=== PATIENT | male | born 1985 | race African-American/Black ===

== ENCOUNTER 2016-12-30 11:46 | Emergency (ER) | payer SELFPAY ==
[2016-12-30 11:51] VITALS: BP 121/81; PULSE 75; RESP 16; TEMP 97.6
[2016-12-30] MEDS ORDERED: KETOROLAC 60 MG/2 ML VIAL IM STA (12:02)
--- NOTE | 2016-12-30 12:08 | ED ---
General Adult HPI - General Chief complaint: Chest Pain Stated complaint: chest pain Time Seen by Provider: 12/30/16 11:50 Source: patient, RN notes reviewed Mode of arrival: ambulatory Limitations: no limitations - History of Present Illness Initial comments: This is a 31-year-old male who presents emergency Department complaining of left chest pain with movement. Patient states he stays still there is no pain. Patient states he moves his left arm across his chest the pain increases per patient states also palpating the left chest area increases the pain. Patient denies any recent injury or trauma that he knows of. Patient states been ongoing for a couple days per patient denies any shortness breath or difficulty breathing. Patient denies any diaphoresis per patient denies any nausea or vomiting. Patient denies any abdominal pain. Patient states she's not had a recent cough denies any fever or chills. Patient denies any lightheadedness dizziness or near syncopal episode. - Related Data Previous Rx's Medication Instructions Recorded Albuterol Inhaler [Ventolin Hfa 2 puff INHALATION Q4HR PRN #1 05/29/15 Inhaler] inhaler Azithromycin [Zithromax Z-pack] 250 mg PO DIRECTED #6 tab 05/29/15 predniSONE 50 mg PO DAILY #5 tab 05/29/15 Ibuprofen [Motrin] 600 mg PO Q6HR PRN #20 tab 12/30/16 Allergies Allergy/AdvReac Type Severity Reaction Status Date / Time No Known Allergies Allergy Verified 12/30/16 11:47 Review of Systems ROS Statement: Those systems with pertinent positive or pertinent negative responses have been documented in the HPI. ROS Other: All systems not noted in ROS Statement are negative. Past Medical History Past Medical History: Asthma History of Any Multi-Drug Resistant Organisms: None Reported Past Surgical History: No Surgical Hx Reported Past Psychological History: No Psychological Hx Reported Smoking Status: Current every day smoker Past Alcohol Use History: Occasional Past Drug Use History: Marijuana General Exam - General Exam Comments Initial Comments: GENERAL: Patient is well-developed and well-nourished. Patient is nontoxic and well- hydrated and is in no acute distress. ENT: Neck is soft and supple. No significant lymphadenopathy is noted. Oropharynx is clear. Moist mucous membranes. Neck has full range of motion without eliciting any pain. EYES: The sclera were anicteric and conjunctiva were pink and moist. Extraocular movements were intact and pupils were equal round and reactive to light. Eyelids were unremarkable. PULMONARY: Unlabored respirations. Good breath sounds bilaterally. No audible rales rhonchi or wheezing was noted. CARDIOVASCULAR: There is a regular rate and rhythm without any murmurs gallops or rubs. Patient 's pain is reproducible with palpation. ABDOMEN: Soft and nontender with normal bowel sounds. No palpable organomegaly was noted. There is no palpable pulsatile mass. SKIN: Skin is clear with no lesions or rashes and otherwise unremarkable. NEUROLOGIC: Patient is alert and oriented x3. Cranial nerves II through XII are grossly intact. Motor and sensory are also intact. Normal speech, volume and content. Symmetrical smile. MUSCULOSKELETAL: Normal extremities with adequate strength and full range of motion. LYMPHATICS: No significant lymphadenopathy is noted PSYCHIATRIC: Normal psychiatric evaluation. Limitations: no limitations Course Vital Signs 12/30/16 11:47 Temperature 97.6 F Pulse Rate 75 Respiratory 16 Rate Blood Pressure 121/81 O2 Sat by Pulse 98 Oximetry Medical Decision Making - Medical Decision Making EKG shows normal sinus rhythm at 60 bpm VA interval 166 QRS is under QT interval 394 QTC is 399 per patient's EKG shows no ST segment elevation or depression or T-wave abdomen is noted. I gave the patient a shot of Toradol to help with the chest wall pain. Patient again to make the pain completely go away but just sitting still. Disposition Clinical Impression: Chest wall pain Disposition: HOME SELF-CARE Condition: Good Instructions: Chest Wall Pain (ED) Prescriptions: Ibuprofen [Motrin] 600 mg PO Q6HR PRN #20 tab PRN Reason: For pain Referrals: None,Stated [Primary Care Provider] - 1-2 days Time of Disposition: 12:07
== END 2016-12-30 12:16 | disposition home or self-care (01) ==
LOC: EC 11:46
DX: R07.89 Other chest pain (principal); F17.200 Nicotine dependence, unspecified, uncomplicated
CPT/HCPCS: 99284; 96372; J1885

== ENCOUNTER 2017-03-30 04:50 | Emergency (ER) | payer OTHER ==
[2017-03-30] MEDS ORDERED: ALBUTEROL NEBULIZED 2.5 MG/3 ML INHALATION STA (06:53)
--- NOTE | 2017-03-30 07:03 | XR ---
EXAM: XR Chest, 2 Views CLINICAL HISTORY: Cough TECHNIQUE: Frontal and lateral views of the chest. COMPARISON: 05/29/2015 FINDINGS: Lungs: Mild left basilar atelectasis and/or infiltrates is suggested. Pleural space: Unremarkable. No pneumothorax. Heart: Unremarkable. No cardiomegaly. Mediastinum: Unremarkable. Bones/joints: Unremarkable. IMPRESSION: Mild left basilar atelectasis and/or infiltrates is suggested. Correlate clinically
[2017-03-30] MEDS ORDERED: cefTRIAXone 1,000 MG VIAL IM STA (07:33)
[2017-03-30] MEDS ORDERED: predniSONE 50 MG TAB PO STA (07:33)
--- NOTE | 2017-03-30 07:33 | ED ---
General Adult HPI - General Chief complaint: Upper Respiratory Infection Stated complaint: back/neck pain Time Seen by Provider: 03/30/17 05:00 Source: patient, RN notes reviewed Mode of arrival: ambulatory Limitations: no limitations - History of Present Illness Initial comments: This is a 31-year-old male who presents emergency Department complaining of a cough and sputum production. Patient states he is smoker and has no history of any breathing problems such as asthma. Patient states it started a couple days ago has been getting progressively worse. Patient states he does continue to smoke. Patient denies any fever chills. Patient denies any chest pain or palpitations. Patient denies any other problems at this time. - Related Data Previous Rx's Medication Instructions Recorded Ibuprofen [Motrin] 600 mg PO Q6HR PRN #20 tab 12/30/16 Albuterol Inhaler [Ventolin Hfa 1 - 2 puff INHALATION Q6HR PRN #2 03/30/17 Inhaler] puff Azithromycin [Zithromax Tri-Sanjay] 500 mg PO DAILY #3 tab 03/30/17 Ibuprofen [Motrin] 800 mg PO Q6H PRN #20 tab 03/30/17 predniSONE 40 mg PO DAILY #8 tab 03/30/17 Allergies Allergy/AdvReac Type Severity Reaction Status Date / Time No Known Allergies Allergy Verified 03/30/17 05:05 Review of Systems ROS Statement: Those systems with pertinent positive or pertinent negative responses have been documented in the HPI. ROS Other: All systems not noted in ROS Statement are negative. Past Medical History Past Medical History: Asthma History of Any Multi-Drug Resistant Organisms: None Reported Past Surgical History: No Surgical Hx Reported Past Psychological History: No Psychological Hx Reported Smoking Status: Current every day smoker Past Alcohol Use History: Occasional Past Drug Use History: Marijuana General Exam - General Exam Comments Initial Comments: GENERAL: Patient is well-developed and well-nourished. Patient is nontoxic and well- hydrated and is in mild distress. ENT: Neck is soft and supple. No significant lymphadenopathy is noted. Oropharynx is clear. Moist mucous membranes. Neck has full range of motion without eliciting any pain. EYES: The sclera were anicteric and conjunctiva were pink and moist. Extraocular movements were intact and pupils were equal round and reactive to light. Eyelids were unremarkable. PULMONARY: Slight extremities. CARDIOVASCULAR: There is a regular rate and rhythm without any murmurs gallops or rubs. ABDOMEN: Soft and nontender with normal bowel sounds. SKIN: Skin is clear with no lesions or rashes and otherwise unremarkable. NEUROLOGIC: Patient is alert and oriented x3. Cranial nerves II through XII are grossly intact. MUSCULOSKELETAL: Normal extremities with adequate strength and full range of motion. No lower extremity swelling or edema. No calf tenderness. LYMPHATICS: No significant lymphadenopathy is noted PSYCHIATRIC: Normal psychiatric evaluation. Limitations: no limitations Course Vital Signs 03/30/17 03/30/17 03/30/17 04:58 05:12 06:41 Temperature 99.0 F 98.1 F Pulse Rate 100 91 Respiratory 18 20 18 Rate Blood Pressure 133/96 144/87 O2 Sat by Pulse 98 97 Oximetry 03/30/17 03/30/17 07:16 07:29 Temperature Pulse Rate 108 H 112 H Respiratory Rate Blood Pressure O2 Sat by Pulse Oximetry Medical Decision Making - Medical Decision Making Chest x-ray shows no acute abnormality After patient was discharged complained about having slipped a couple days ago and hurt his back and he wanted some Motrin. Disposition Clinical Impression: Acute bronchitis Disposition: HOME SELF-CARE Condition: Good Instructions: Acute Bronchitis (ED) Prescriptions: Albuterol Inhaler [Ventolin Hfa Inhaler] 1 - 2 puff INHALATION Q6HR PRN #2 puff PRN Reason: Difficulty breathing Azithromycin [Zithromax Tri-Sanjay] 500 mg PO DAILY #3 tab Ibuprofen [Motrin] 800 mg PO Q6H PRN #20 tab PRN Reason: Pain predniSONE 40 mg PO DAILY #8 tab Referrals: None,Stated [Primary Care Provider] - 1-2 days Time of Disposition: 07:32
[2017-03-30 08:38] VITALS: BP 136/69; PULSE 98; RESP 16; TEMP 98
== END 2017-03-30 08:38 | disposition home or self-care (01) ==
LOC: EC 04:50
DX: J20.9 Acute bronchitis, unspecified (principal); J45.909 Unspecified asthma, uncomplicated; F17.200 Nicotine dependence, unspecified, uncomplicated
CPT/HCPCS: 99283 ×2; 96372 ×2; 94640; 71020; J0696; J7512

== ENCOUNTER 2017-08-26 07:53 | Emergency (ER) | payer OTHER ==
[2017-08-26] MEDS ORDERED: KETOROLAC 30 MG/ML 1 ML VIAL IVP STA (08:18)
[2017-08-26] MEDS ORDERED: SODIUM CHLORIDE 0.9% 1,000 ML IV STA (08:18)
--- NOTE | 2017-08-26 08:22 | ED ---
Chest Pain HPI - General Chief Complaint: Chest Pain Stated Complaint: Chest pain Time Seen by Provider: 08/26/17 08:04 Source: patient, RN notes reviewed, old records reviewed Mode of arrival: ambulatory Limitations: no limitations - History of Present Illness Initial Comments: This is a 31-year-old male presents emergency Department chief complaint of chest pain that is worse with movement and taking a deep breath since the weekend. Patient reports that he thinks is related to the change weather and weight lifting. He's had a minor cough but no yellow-green sputum or blood. Patient reports that he has no lower extremity swelling. Denies any nausea vomiting or diaphoresis. Patient is a history of a smoker. He states that he thought was muscle strain. He went to the gym to work it out. He states is become progressively worse with movement. He has not had any Motrin or Tylenol. - Related Data Previous Rx's Medication Instructions Recorded Cyclobenzaprine [Flexeril] 10 mg PO TID #20 tab 08/26/17 Naproxen 500 mg PO BID #20 tablet 08/26/17 methylPREDNISolone Dose Pack 4 mg PO DIRECTED #21 package 08/26/17 [Medrol Dose Pack] Allergies Allergy/AdvReac Type Severity Reaction Status Date / Time No Known Allergies Allergy Verified 08/26/17 08:26 Review of Systems ROS Statement: Those systems with pertinent positive or pertinent negative responses have been documented in the HPI. ROS Other: All systems not noted in ROS Statement are negative. EKG Findings - EKG Comments: EKG Findings:: EKG performed at 808 shows normal sinus rhythm, cannot rule out anterior infarct. Age undetermined. The jugular is 70 bpm. WI interval 170 ms. QRS duration 94 ms. QT QTc is 384/414 ms. Past Medical History Past Medical History: Asthma History of Any Multi-Drug Resistant Organisms: None Reported Past Surgical History: No Surgical Hx Reported Past Psychological History: No Psychological Hx Reported Smoking Status: Current every day smoker Past Alcohol Use History: Occasional Past Drug Use History: Marijuana General Exam - General Exam Comments Initial Comments: This is a 31-year-old male. No acute distress. Limitations: no limitations General appearance: alert Head exam: Present: atraumatic, normocephalic, normal inspection Eye exam: Present: normal appearance, PERRL, EOMI. Absent: scleral icterus, conjunctival injection, periorbital swelling ENT exam: Present: normal exam, mucous membranes moist Neck exam: Present: normal inspection. Absent: tenderness, meningismus, lymphadenopathy Respiratory exam: Present: normal lung sounds bilaterally, chest wall tenderness (over left pectoral muscle). Absent: respiratory distress, wheezes, rales, rhonchi, stridor Cardiovascular Exam: Present: regular rate, normal rhythm, normal heart sounds. Absent: systolic murmur, diastolic murmur, rubs, gallop, clicks GI/Abdominal exam: Present: soft, normal bowel sounds. Absent: distended, tenderness, guarding, rebound, rigid Extremities exam: Present: normal inspection, full ROM, normal capillary refill. Absent: tenderness, pedal edema, joint swelling, calf tenderness Back exam: Present: normal inspection Neurological exam: Present: alert, oriented X3, CN II-XII intact Psychiatric exam: Present: normal affect, normal mood Skin exam: Present: warm, dry, intact, normal color. Absent: rash Course Vital Signs 08/26/17 08/26/17 08/26/17 07:56 08:46 09:45 Temperature 98.3 F Pulse Rate 75 71 67 Respiratory 16 18 18 Rate Blood Pressure 139/94 134/88 135/83 O2 Sat by Pulse 99 98 99 Oximetry 08/26/17 10:08 Temperature 98.2 F Pulse Rate Respiratory Rate Blood Pressure O2 Sat by Pulse Oximetry Chest Pain MDM - MDM This is a 31 year old male with history of left chest pain and right chest pain taht is worse with movement and reproducible on exam. Patient lungs are clear to exam, cardiac exam was normal. He reports it is worse with stretching his chest and moving his arms. Patient lab work was reviewed and normal. With 3 days , if this was cardiac origin of pain, I would expect to see an elevated troponin. Patient Chest x-ray shows Is no acute cardiopulmonary process. No significant change from prior. Patient will be given antiinflammatory medication and return parameters discussed. Will treat the patient as muscle strain and pectoralis strain. Discussed prompt follow up with PCP and return parameters discussed. Disposition Clinical Impression: Chest wall pain, Pectoralis muscle strain Disposition: HOME SELF-CARE Condition: Good Instructions: Costochondritis (ED) Additional Instructions: Patient is to rest, take the medication as prescribed. Follow-up with primary care provider if symptoms aren't continuing to persist in 1-2 days. Return to emergency department if any alarming signs or symptoms occur. Recommended stretching and taking warm baths for muscle strain. Prescriptions: Cyclobenzaprine [Flexeril] 10 mg PO TID #20 tab methylPREDNISolone Dose Pack [Medrol Dose Pack] 4 mg PO DIRECTED #21 package Naproxen 500 mg PO BID #20 tablet Referrals: None,Stated [Primary Care Provider] - 1-2 days Time of Disposition: 10:02
[2017-08-26 08:47] VITALS: RESP 18
--- NOTE | 2017-08-26 08:47 | XR ---
EXAMINATION TYPE: XR chest 2V DATE OF EXAM: 08/26/2017 COMPARISON: Chest x-ray from March 30, 2017. HISTORY: Chest pain for 4 days. TECHNIQUE: Frontal and lateral views of the chest are obtained. FINDINGS: Poor inspiration is noted on current study. There is no focal air space opacity, pleural e ffusion, or pneumothorax seen. The cardiac silhouette size is within normal limits. The osseous st ructures are intact. IMPRESSION: No acute cardiopulmonary process. No significant change from prior.
[2017-08-26 08:54] LABS: Basophils % (A) 0 %; Eosinophils # (A) 0.1 k/uL (0-0.7); Eosinophils % (A) 2 %; HCT 44.4 % (39.0-53.0); HGB 15.2 gm/dL (13.0-17.5); Lymphocytes # (A) 1.9 k/uL (1.0-4.8); Lymphocytes % (A) 31 %; MCH 30.4 pg (25.0-35.0); MCHC 34.2 g/dL (31.0-37.0); Mean Platelet Volume 8.8; Monocytes # (A) 0.5 k/uL (0-1.0); Monocytes % (A) 8 %; Neutrophils # (A) 3.6 k/uL (1.3-7.7); Neutrophils % (A) 57 %; Platelet Count 155 k/uL (150-450); RBC 4.99 m/uL (4.30-5.90); RDW 12.8 % (11.5-15.5); WBC 6.3 k/uL (3.8-10.6)
[2017-08-26 08:57] LABS: INR 1.1 (<1.2); Partial Thromboplastin Time 27.7 sec (22.0-30.0); Prothrombin Time 10.5 sec (9.0-12.0)
[2017-08-26 09:10] LABS: ALT 48 U/L (21-72); AST 29 U/L (17-59); Albumin 4.4 g/dL (3.5-5.0); Alkaline Phosphatase 74 U/L (38-126); Anion Gap 12 mmol/L; Blood Urea Nitrogen 14 mg/dL (9-20); Calcium 9.5 mg/dL (8.4-10.2); Carbon Dioxide 24 mmol/L (22-30); Chloride 105 mmol/L (98-107); Glucose 98 mg/dL (74-99); Magnesium 1.8 mg/dL (1.6-2.3); Potassium 4.6 mmol/L (3.5-5.1); Sodium 141 mmol/L (137-145); Total Bilirubin 0.6 mg/dL (0.2-1.3); Total Protein 7.4 g/dL (6.3-8.2)
[2017-08-26 09:16] LABS: Creatine Kinase 215 U/L (55-170)
[2017-08-26 09:29] LABS: Creatine Kinase MB 0.3 ng/mL (0.0-2.4); Troponin I <0.012 ng/mL (0.000-0.034)
[2017-08-26 09:46] VITALS: BP 135/83; PULSE 67
[2017-08-26 10:16] VITALS: TEMP 98.2
== END 2017-08-26 10:08 | disposition home or self-care (01) ==
LOC: EC 07:53
DX: S29.011A Strain of muscle and tendon of front wall of thorax, initial encounter (principal); R05 Cough; F17.200 Nicotine dependence, unspecified, uncomplicated; X58.XXXA Exposure to other specified factors, initial encounter
CPT/HCPCS: 36415; 93005; 83880; 80053; 82550; 82553; 83735; 84484; 85025; 85610; 85730; 71046; 99285; 96374; 96361; J1885

== ENCOUNTER → 2022-06-25 | Outpatient (CLI) | payer BC, OTHER ==
--- NOTE | 2022-06-25 12:27 | XR ---
EXAMINATION TYPE: XR spine complete AP and Lat DATE OF EXAM: 06/25/2022 COMPARISON: NONE HISTORY: Pain TECHNIQUE: AP and lateral views of the cervical, thoracic and lumbar spine submitted FINDINGS: Cervical spine there is disc space narrowing and hypertrophic changes at C4-5 and C5-C6. Odontoid int act. Prevertebral soft tissue structures within normal limits. Thoracic spine is mild hypertrophic change involving the lower thoracic spine. Disc space appears be fairly well preserved and the pedicles are intact. Lumbar spine: Alignment is anatomic. Pedicles intact hypertrophic spurring anterior L3 segment. No co mpression or metastases. IMPRESSION: 1. Moderate degenerative disc disease C5-C6. 2. Mild hypertrophic changes involving the lower thoracic spine. 3. Lumbar spine demonstrates preservation of disc spaces. If concern for disc herniation consider MRI .
== END | disposition home or self-care (01) ==
LOC: RADXRMAIN 11:40
PROVIDERS: ATTEND Nurse Practitioner Family
DX: M50.322 Other cervical disc degeneration at C5-C6 level (principal); M47.814 Spondylosis without myelopathy or radiculopathy, thoracic region
CPT/HCPCS: 72082

== ENCOUNTER → 2023-03-27 | Outpatient (CLI) | payer OTHER | LOC: PNWHC3 09:44 | PROVIDERS: ATTEND Anesthesiology | DX: Z53.9 Procedure and treatment not carried out, unspecified reason (principal) ==

== ENCOUNTER → 2023-08-04 | Outpatient (CLI) | payer OTHER ==
--- NOTE | 2023-08-04 17:46 | XR ---
Right ankle. HISTORY: Pain findings COMPARISON: None TECHNIQUE: 3 views right ankle were obtained. FINDINGS: There is slight abnormal widening of the medial aspect of the ankle mortise. There is mild soft tissu e swelling over the lateral malleolus. There is no fracture or focal intraosseous abnormality. There is no abnormal soft tissue calcification. IMPRESSION: 1. No fracture. 2. Mild widening of the medial aspect of the ankle mortise and lateral soft tissue swelling raising t he question of ligamentous injury.
--- NOTE | 2023-08-04 17:48 | XR ---
Right wrist. HISTORY: Pain finding trauma COMPARISON: None TECHNIQUE: 4 views right wrist are obtained. EYES: There is no fracture, dislocation, intraosseous, intra-articular or soft tissue abnormality. IMPRESSION: No evidence of acute trauma.
--- NOTE | 2023-08-04 17:49 | XR ---
Right knee. HISTORY: Pain, trauma COMPARISON: None. TECHNIQUE: 3 views right knee were obtained. FINDINGS: There is no fracture, dislocation or focal intraosseous abnormality. There is a large joint effusion. There is no soft tissue calcification or radiopaque foreign body. IMPRESSION: Large joint effusion with no other significant abnormality seen.
--- NOTE | 2023-08-04 17:51 | XR ---
Left femur. HISTORY: Pain finding trauma. COMPARISON: None. TECHNIQUE: 4 views of left femur were obtained. FINDINGS: There is no fracture or focal intraosseous abnormality. The left hip joint is intact. The soft tissues are unremarkable. IMPRESSION: No evidence of acute trauma.
--- NOTE | 2023-08-04 17:53 | XR ---
Pelvis. HISTORY: Pain finding trauma COMPARISON: None. TECHNIQUE: Single AP view the pelvis is obtained. FINDINGS: The hips are normal and symmetric bilaterally and there is no fracture or dislocation The pelvic ring is intact. There is no diastasis of the SI joints or pubic symphysis. The sacrum is i ntact. IMPRESSION: No evidence of acute trauma.
== END | disposition home or self-care (01) ==
LOC: RADXRMAIN 16:41
PROVIDERS: ATTEND Emergency Medicine
DX: M79.89 Other specified soft tissue disorders (principal); M25.461 Effusion, right knee; S63.501A Unspecified sprain of right wrist, initial encounter; S80.01XA Contusion of right knee, initial encounter; S70.12XA Contusion of left thigh, initial encounter; S30.0XXA Contusion of lower back and pelvis, initial encounter; S93.491A Sprain of other ligament of right ankle, initial encounter; X58.XXXA Exposure to other specified factors, initial encounter
CPT/HCPCS: 72170

== ENCOUNTER → 2023-09-09 | Outpatient (CLI) | payer OTHER ==
--- NOTE | 2023-09-09 12:50 | US ---
EXAMINATION TYPE: US venous doppler duplex LE LT DATE OF EXAM: 09/09/2023 12:24 PM COMPARISON: NONE CLINICAL INDICATION: Male, 37 years old with history of M79.605 PAIN IN LT LEG; Pain left thigh after work injury SIDE PERFORMED: Left TECHNIQUE: The lower extremity deep venous system is examined utilizing real time linear array sonog marilee with graded compression, doppler sonography and color-flow sonography. VESSELS IMAGED: Common Femoral Vein Deep Femoral Vein Greater Saphenous Vein * Femoral Vein Popliteal Vein Small Saphenous Vein * Proximal Calf Veins (* superficial vessels) Left Leg: Negative for DVT, Left lateral thigh scanned in area of pt's swelling- no abnormality visu alized IMPRESSION: Grayscale, color doppler, spectral doppler imaging performed of the deep veins of the lo wer extremities. There is normal flow, compressibility, vascular waveforms.
--- NOTE | 2023-09-09 12:52 | XR ---
EXAMINATION TYPE: XR knee complete LT DATE OF EXAM: 09/09/2023 11:49 AM CLINICAL INDICATION:Male, 37 years old with history of S70.12XD CONTUSION LEFT THIGH M79.605 PAIN IN LEFT; [facility] COMPARISON: None. TECHNIQUE: XR knee complete LT; examined in Frontal, lateral and oblique projections. FINDINGS: No evidence of any acute osseous pathology, soft tissue swelling, or joint effusion is no brittany. IMPRESSION: No acute osseous pathology.
== END | disposition home or self-care (01) ==
LOC: RADUSWWP 11:26
PROVIDERS: ATTEND Emergency Medicine
DX: S70.12XD Contusion of left thigh, subsequent encounter (principal); M79.605 Pain in left leg

== ENCOUNTER → 2023-09-09 | Outpatient (CLI) | payer OTHER ==
--- NOTE | 2023-09-10 12:43 | MR ---
EXAMINATION TYPE: MR knee RT wo con DATE OF EXAM: 09/09/2023 COMPARISON: Right knee x-ray July HISTORY: Right knee and ankle pain, S/P injury 2 months ago. Xrays on pacs. TECHNIQUE: Multiplanar, multisequence images of the knee is performed without IV contrast. FINDINGS: MEDIAL MENISCUS: Horizontal increased signal posterior horn extends towards central body and inferior articular surface coronal image 22. LATERAL MENISCUS: Anterior and posterior horns are intact without tear. CRUCIATE LIGAMENTS: The anterior and posterior cruciate ligaments are intact and unremarkable. COLLATERAL LIGAMENTS: The medial collateral ligament and lateral collateral ligament complex are inta ct and unremarkable. EXTENSOR MECHANISM: Visualized quadriceps and patellar tendons are intact. EFFUSION: No significant suprapatellar joint effusion. POPLITEAL CYST: No popliteal/whitehead cyst. Thin-walled lobulated cystic lesion just posterior to the p osterior aspect distal femoral metaphysis medially. TRICOMPARTMENT SPACES: Tricompartmental joint spaces are maintained. No significant spurring. CARTILAGE: Tricompartment articular cartilage is preserved. BONE MARROW SIGNAL: No focal abnormal marrow signal is appreciated. OTHER: No additional significant abnormality is appreciated. IMPRESSION: 1. At least intrasubstance suspected subtle full-thickness tear posterior horn of medial meniscus.
== END | disposition home or self-care (01) ==
LOC: RADMRIMAIN 07:51
PROVIDERS: ATTEND Emergency Medicine
DX: S80.01XD Contusion of right knee, subsequent encounter (principal); S93.491D Sprain of other ligament of right ankle, subsequent encounter; S63.501D Unspecified sprain of right wrist, subsequent encounter; S70.12XD Contusion of left thigh, subsequent encounter; S30.0XXD Contusion of lower back and pelvis, subsequent encounter